=== PATIENT | female | born 1935 | race African-American/Black ===

== ENCOUNTER 2016-09-25 15:46 | Emergency (ER) | payer MEDICARE ==
[~2016-09-25] VITALS: Ht 154.9 cm; Wt 78.0 kg
[~2016-09-25 15:46] MED LIST: ACET1CAP18 PO; AMOX875T PO; CETI5CHW CHEW; CHLO25TA2 PO; FLUT50SP EACH NARE; LISI10TA3 PO
[2016-09-25 15:49] VITALS: BP 185/92; PULSE 72; RESP 20; TEMP 98.9; O2SAT 98
[2016-09-25] MEDS ORDERED: SODIUM CHLOR 0.9% 1000 ML INJ 1,000 ML IV SCH (16:24)
[2016-09-25] MEDS ORDERED: MORPHINE SULFATE 4 MG/ML INJ IV PUSH ONE (16:30)
[2016-09-25] MEDS ORDERED: ONDANSETRON HCL 4 MG/2 ML VIAL IVP ONE (16:30)
[2016-09-25] MEDS ORDERED: SODIUM CHLORIDE 0.9% FLUSH 10 ML FLUSH IV FLUSH PRN (16:30)
[2016-09-25 17:07] LABS: AUTOMATED NEUTROPHIL # 2.7 TH/MM3 (1.8-7.7); BASOPHIL % 0.9 % (0.0-2.0); EOSINOPHIL # 0.1 TH/MM3 (0-0.4); HEMATOCRIT 37.5 % (35.0-46.0); HEMO FLAGS DIFF FINAL; LYMPH % 38.7 % (9.0-44.0); LYMPHOCYTE # 2.2 TH/MM3 (1.0-4.8); MEAN CELL VOLUME 79.5 FL (80.0-100.0); MEAN CORPUSCULAR HEMOGLOBIN 27.9 PG (27.0-34.0); MEAN CORPUSCULAR HGB CONC 35.1 % (32.0-36.0); MONO % 11.8 % (0.0-8.0); NEUT % 47.6 % (16.0-70.0); PLATELET COUNT 291 TH/MM3 (150-450); RED BLOOD COUNT 4.71 MIL/MM3 (4.00-5.30); RED CELL DISTRIBUTION WIDTH 14.4 % (11.6-17.2); WHITE BLOOD COUNT 5.6 TH/MM3 (4.0-11.0)
[2016-09-25 17:08] LABS: BLOOD, URINE NEG (NEG); COMMENT (UR) CULT NOT INDICATED; CULTURE IF INDICATED CULT NOT INDICATED; GLUCOSE,URINE NEG (NEG); KETONE, URINE NEG (NEG); MUCUS URINE FEW /lpf (OCC); NITRITE,URINE NEG (NEG); PH, URINE 5.5 (5.0-8.5); SQUAMOUS EPITHELIAL CELL URINE 2 /hpf (0-5); URINE COLOR YELLOW (YELLW/STRAW)
--- NOTE | 2016-09-25 17:20 | PD ---
HPI Chief Complaint: Abdominal Pain Time Seen by Provider: 16:04 Travel History International Travel<30 days: No Contact w/Intl Traveler<30days: No Traveled to known affect area: No History of Present Illness HPI This is a 81-year-old female who presents to the emergency department with 1 week of intermittent abdominal pain, described as sharp, crampy, feeling like gas, worse in the upper abdomen associated with some dry heaving. She says this started after a two-week upper respiratory infection for which she completed a course of amoxicillin. She's been taking milk of magnesia and has had looser stools than normal. She denies any fevers or chills. She has had a hysterectomy and a cholecystectomy. PFSH Past Medical History Arthritis: Yes Autoimmune Disease: No Blood Disorders: No Anxiety: Yes (MILD) Cancer: No Cardiovascular Problems: Yes (HTN) High Cholesterol: Yes Congestive Heart Failure: No Diabetes: No Diminished Hearing: No Endocrine: No Gastrointestinal Disorders: Yes GERD: Yes Genitourinary: No Headaches: Yes (sinus headache) Hiatal Hernia: Yes Hypertension: Yes Immune Disorder: No Implanted Vascular Access Dvce: Yes Musculoskeletal: Yes (CHRONIC LOW BACK PAIN) Neurologic: Yes (feet numbness) Psychiatric: Yes Reproductive: No Respiratory: No ?: Not Past Surgical History Abdominal Surgery: Yes (DILCIA, ROSIO) Appendectomy: Yes Cardiac Surgery: No Cholecystectomy: Yes Ear Surgery: No Endocrine Surgery: No Eye Surgery: No Genitourinary Surgery: No Gynecologic Surgery: Yes ([id number] AND APPY) Hysterectomy: Yes Joint Replacement: Yes (BILATERAL KNEES) Oral Surgery: Yes (T&A) Pacemaker: No Thoracic Surgery: No Tonsillectomy: Yes Other Surgery: Yes (REDUCTION MAMOPLASTY) Social History Alcohol Use: No Tobacco Use: No Substance Use: No Allergies-Medications (Allergen,Severity, Reaction): Coded Allergies: No Known Allergies (Verified , 08/23/16) Reported Meds & Prescriptions Reported Meds & Active Scripts Active Lisinopril 10 Mg Tab 10 Mg PO DAILY Chlorthalidone 25 Mg Tab 25 Mg PO DAILY Reported Aspirin 81 (Aspirin) 81 Mg Tabdr 81 Mg PO DAILY Daiana Allergy (Fexofenadine HCl) 60 Mg Tab 60 Mg PO BID Omeprazole 20 Mg Tab 20 Mg PO DAILY Fluticasone Nasal [place] 50 Mcg/Act Naspr 50 Mcg EACH NARE BID 50 mcg/spray Cetirizine (Cetirizine HCl) 5 Mg Chew 5 Mg CHEW DAILY Tylenol (Acetaminophen) 325 Mg Cap 325 Mg PO Q6H PRN Review of Systems Except as stated in HPI: all other systems reviewed are Neg Physical Exam Narrative GENERAL:Well appearing, no acute distress SKIN: Focused skin assessment warm and dry. HEAD: Atraumatic. Normocephalic. EYES: Pupils equal and round. No injection or drainage. ENT: Moist mucous membranes NECK: Trachea midline. CARDIOVASCULAR: Regular rate and rhythm. No murmur appreciated. RESPIRATORY: Clear to auscultation. Breath sounds equal bilaterally. GASTROINTESTINAL: Abdomen soft, non-tender, nondistended. MUSCULOSKELETAL: No obvious deformities. NEUROLOGICAL: Awake and alert. No obvious cranial nerve deficits. Moving all extremities. PSYCHIATRIC: Appropriate mood and affect; insight and judgment normal. Data Data Last Documented VS Vital Signs Date Time Temp Pulse Resp B/P Pulse Ox O2 Delivery O2 Flow Rate FiO2 09/25/16 15:49 98.9 72 20 185/92 98 Room Air Orders Complete Blood Count With Diff (09/25/16 16:24) Comprehensive Metabolic Panel (09/25/16 16:24) Lipase (09/25/16 16:24) Urinalysis - C+S If Indicated (09/25/16 16:24) Ct Abd/Pel W Iv Contrast(Rout) (09/25/16 16:24) Iv Access Insert/Monitor (09/25/16 16:24) Ecg Monitoring (09/25/16 16:24) Oximetry (09/25/16 16:24) Morphine Inj (Morphine Inj) (09/25/16 16:30) Ondansetron Inj (Zofran Inj) (09/25/16 16:30) Sodium Chlor 0.9% 1000 Ml Inj (Ns 1000 M (09/25/16 16:24) Sodium Chloride 0.9% Flush (Ns Flush) (09/25/16 16:30) Lactic Acid (09/25/16 16:24) Troponin I (09/25/16 16:31) Electrocardiogram (09/25/16 ) Iohexol 350 Inj (Omnipaque 350 Inj) (09/25/16 17:59) Labs Laboratory Tests Test 09/25/16 16:45 White Blood Count 5.6 TH/MM3 Red Blood Count 4.71 MIL/MM3 Hemoglobin 13.1 GM/DL Hematocrit 37.5 % Mean Corpuscular Volume 79.5 FL Mean Corpuscular Hemoglobin 27.9 PG Mean Corpuscular Hemoglobin 35.1 % Concent Red Cell Distribution Width 14.4 % Platelet Count 291 TH/MM3 Mean Platelet Volume 9.0 FL Neutrophils (%) (Auto) 47.6 % Lymphocytes (%) (Auto) 38.7 % Monocytes (%) (Auto) 11.8 % Eosinophils (%) (Auto) 1.0 % Basophils (%) (Auto) 0.9 % Neutrophils # (Auto) 2.7 TH/MM3 Lymphocytes # (Auto) 2.2 TH/MM3 Monocytes # (Auto) 0.7 TH/MM3 Eosinophils # (Auto) 0.1 TH/MM3 Basophils # (Auto) 0.0 TH/MM3 CBC Comment DIFF FINAL Differential Comment Urine Color YELLOW Urine Turbidity CLEAR Urine pH 5.5 Urine Specific [place] 1.018 Urine Protein NEG mg/dL Urine Glucose (UA) NEG mg/dL Urine Ketones NEG mg/dL Urine Occult Blood NEG Urine Nitrite NEG Urine Bilirubin NEG Urine Urobilinogen LESS THAN 2.0 MG/DL Urine Leukocyte Esterase NEG Urine RBC LESS THAN 1 /hpf Urine WBC 1 /hpf Urine Squamous Epithelial 2 /hpf Cells Urine Mucus FEW /lpf Microscopic Urinalysis Comment CULT NOT INDICATED Sodium Level 139 MEQ/L Potassium Level 4.2 MEQ/L Chloride Level 104 MEQ/L Carbon Dioxide Level 28.6 MEQ/L Anion Gap 6 MEQ/L Blood Urea Nitrogen 16 MG/DL Creatinine 1.04 MG/DL Estimat Glomerular Filtration 62 ML/MIN Rate Random Glucose 99 MG/DL Lactic Acid Level 1.8 mmol/L Calcium Level 9.6 MG/DL Total Bilirubin 0.8 MG/DL Aspartate Amino Transf 51 U/L (AST/SGOT) Alanine Aminotransferase 27 U/L (ALT/SGPT) Alkaline Phosphatase 83 U/L Total Protein 8.4 GM/DL Albumin 4.0 GM/DL Lipase 280 U/L [facility] Medical Decision Making Medical Screen Exam Complete: Yes Emergency Medical Condition: Yes Interpretation(s) Afebrile, no tachycardia, hypertensive EKG: Normal sinus rhythm with no ST changes No leukocytosis Electrolytes are reassuring Lactic acid is 1.8 Lipase is normal Urinalysis: No infection Last 24 hours Impressions Abdomen/Pelvis CT 09/25/16 1624 Signed Impressions: Service Date/Time: Sunday, September 25, 2016 17:44 - CONCLUSION: 1. No evidence of acute abdominal or pelvic process. No masses are identified. 2. Diverticulosis without evidence of diverticulitis. Bobby Garcia MD Differential Diagnosis Gastritis, peptic ulcer disease, pancreatitis, cholelithiasis, cholecystitis, acute coronary syndrome Narrative Course This is a 81-year-old female who presents to the emergency department with abdominal discomfort and some nausea that going on for 1 week. She has benign abdominal exam. She is very well-appearing. Labs are all reassuring. CT scan was ordered which was unremarkable. EKG is nonischemic. I think patient likely has GERD or some gastritis. Patient will be discharged home with an antacid to follow-up with her primary care physician and possibly a principal cloud architect. Diagnosis Primary Impression: GERD (gastroesophageal reflux disease) Qualified Code: K21.9 - Gastroesophageal reflux disease, esophagitis presence not specified Patient Instructions: General Instructions Additional Instructions: If you develop severe or worsening abdominal pain, fever>100.4, persistent vomiting or inability to eat or drink return to the emergency department immediately. Follow up with your primary care physician in 1-2 days for a check-up. Med/Other Pt SpecificInfo: Prescription(s) given Scripts Sucralfate (Carafate)1 Gm Tab1 Gm PO TID #90 TAB Ref 0 On empty stomach Prov:Bernice Glynn MD 09/25/16 Ranitidine (Zantac)150 Mg Xnr620 Mg PO BID #60 TAB Ref 0 Prov:Bernice Glynn MD 09/25/16 Disposition: 01 DISCHARGE HOME Condition: Stable Bernice Glynn MD September 25, 2016 17:20
[2016-09-25 17:22] LABS: ALT (GPT) 27 U/L (10-53); ANION GAP 6 MEQ/L (5-15); AST (GOT) 51 U/L (15-37); BICARBONATE 28.6 MEQ/L (21.0-32.0); BLOOD UREA NITROGEN 16 MG/DL (7-18); CHLORIDE 104 MEQ/L (98-107); GLOMERULAR FILTRATION RATE 62 ML/MIN (>89); SODIUM (NA) 139 MEQ/L (136-145)
[2016-09-25 17:23] LABS: ALKALINE PHOSPHATASE 83 U/L (45-117); POTASSIUM 4.2 MEQ/L (3.5-5.1); TOTAL BILIRUBIN ADULT 0.8 MG/DL (0.2-1.0)
[2016-09-25] MEDS ORDERED: ASPI-110 PO (17:25)
[2016-09-25] MEDS ORDERED: OMEP20TA PO (17:25)
[2016-09-25] MEDS ORDERED: ALLE60TA PO (17:25)
[2016-09-25] MEDS ORDERED: IOHEXOL 350 MG/ML 10 ML VIAL (for RAD DIAG) IV ONE (17:59)
--- NOTE | 2016-09-25 18:12 | RADRPT ---
EXAM DATE/TIME: 09/25/2016 17:44 [facility] COMPARISON: No previous studies available for comparison. INDICATIONS : Abdomen pain and nausea for one week IV CONTRAST: 85 cc Omnipaque 350 (iohexol) IV ORAL CONTRAST: No oral contrast ingested. RADIATION DOSE: 9.96 CTDIvol (mGy) MEDICAL HISTORY : Cardiovascular disease. Hypertension. SURGICAL HISTORY : Appendectomy. Cholecystectomy.Hysterectomy. ENCOUNTER: Initial ACUITY: 1 week PAIN SCALE: 6/10 LOCATION: Diffuse abdomen TECHNIQUE: Volumetric scanning of the abdomen and pelvis was performed. Using automated exposure control and ad justment of the mA and/or kV according to patient size, radiation dose was kept as low as reasonably achievable to obtain optimal diagnostic quality images. FINDINGS: Examination of the lung bases demonstrates no abnormality. No pleural fluid is identified. No pulmona ry nodules are present. The liver and spleen are free of focal defects. The gallbladder is absent and the pancreas demonstrate no abnormality. The adrenal glands are normal. The kidneys demonstrate no e vidence of solid renal mass or hydronephrosis. No free fluid or abdominal masses are identified. No p donny-aortic adenopathy is seen. Examination of the pelvis demonstrates no evidence of free fluid or pelvic mass. No abnormally enlarg ed inguinal or retroperitoneal lymph nodes are present. The bladder is unremarkable. There is diverti culosis without evidence of diverticulitis. CONCLUSION: 1. No evidence of acute abdominal or pelvic process. No masses are identified. 2. Diverticulosis without evidence of diverticulitis. Bobby Garcia MD on September 25, 2016 at 18:07 Board Certified Radiologist. This report was verified electronically.
[2016-09-25] MEDS ORDERED: CARA1TAB6 PO (18:25)
[2016-09-25] MEDS ORDERED: ZANT150T2 PO (18:25)
--- NOTE | 2016-09-26 13:40 | EKG ---
Date Performed: 09/25/2016 Time Performed: 17:02:20 PTAGE: 81 years EKG: Sinus rhythm VOLTAGE CRITERIA FOR LVH NONSPECIFIC T-WAVE ABNORMALITY ABNORMAL ECG Compared to prior tracing no si gnificant change PREVIOUS TRACING : 12/26/2015 00.02 DOCTOR: Talha Cormier Interpretating Date/Time 09/26/2016 13:38:16
[2016-10-09] MEDS ORDERED: ZANT150T2 PO (09:31)
== END 2016-09-25 19:10 | disposition home or self-care (01) ==
LOC: NEPE 15:46
DX: K21.9 Gastro-esophageal reflux disease without esophagitis (principal); I10 Essential (primary) hypertension; R94.31 Abnormal electrocardiogram [ECG] [EKG]; Z79.899 Other long term (current) drug therapy
CPT/HCPCS: 74177; 80053; 81001; 83605; 83690; 84484; 85025; 93005; 96361; 96374; 96375; 99284; J2270; J2405; J7030; Q9967

== ENCOUNTER → 2017-02-11 | Outpatient (CLI) | payer MEDICARE, OTHER ==
[~2017-02-11] MED LIST changes: -ACET1CAP18 PO; +ALLE60TA PO; -AMOX875T PO; +ASPI-110 PO; +CARA1TAB6 PO; +INFL1INJ56 IM; +LACT10SO PO; +MULT-65 PO; +PERI8.6T PO; +SIME40DR3 PO; +TYLE325T PO; +VITA10004 PO; +ZANT150T2 PO
[2017-02-11 10:56] LABS: AUTOMATED NEUTROPHIL # 2.4 TH/MM3 (1.8-7.7); BASOPHIL % 0.8 % (0.0-2.0); EOSINOPHIL # 0.2 TH/MM3 (0-0.4); EOSINOPHIL % 3.1 % (0.0-4.0); HEMATOCRIT 36.3 % (35.0-46.0); HEMO FLAGS DIFF FINAL; LYMPH % 40.8 % (9.0-44.0); LYMPHOCYTE # 2.2 TH/MM3 (1.0-4.8); MEAN CELL VOLUME 80.8 FL (80.0-100.0); MEAN CORPUSCULAR HEMOGLOBIN 28.6 PG (27.0-34.0); MEAN CORPUSCULAR HGB CONC 35.4 % (32.0-36.0); MONO % 10.3 % (0.0-8.0); PLATELET COUNT 280 TH/MM3 (150-450); RED BLOOD COUNT 4.49 MIL/MM3 (4.00-5.30); WHITE BLOOD COUNT 5.3 TH/MM3 (4.0-11.0)
[2017-02-11 11:12] LABS: BLOOD, URINE NEG (NEG); COMMENT (UR) CULT NOT INDICATED; CULTURE IF INDICATED CULT NOT INDICATED; GLUCOSE,URINE NEG (NEG); KETONE, URINE NEG (NEG); NITRITE,URINE NEG (NEG); SQUAMOUS EPITHELIAL CELL URINE 2 /hpf (0-5); URINE COLOR YELLOW (YELLW/STRAW)
[2017-02-11 11:17] LABS: ALT (GPT) 26 U/L (10-53); ANION GAP 10 MEQ/L (5-15); AST (GOT) 18 U/L (15-37); BLOOD UREA NITROGEN 13 MG/DL (7-18); CHLORIDE 103 MEQ/L (98-107); GLOMERULAR FILTRATION RATE 78 ML/MIN (>89); GLUCOSE,FASTING 80 MG/DL (74-99); POTASSIUM 3.8 MEQ/L (3.5-5.1); SODIUM (NA) 140 MEQ/L (136-145)
[2017-02-11 11:20] LABS: ALKALINE PHOSPHATASE 96 U/L (45-117); TOTAL BILIRUBIN ADULT 0.7 MG/DL (0.2-1.0)
== END ==
LOC: CPRE 09:52
PROVIDERS: ATTEND Obstetrics & Gynecology Gynecology
DX: Z01.810 Encounter for preprocedural cardiovascular examination (principal); Z01.812 Encounter for preprocedural laboratory examination; N99.3 Prolapse of vaginal vault after hysterectomy
CPT/HCPCS: 36415; 80053; 81001; 85025

== ENCOUNTER → 2017-02-19 | Day surgery (SDC) | payer MEDICARE, OTHER ==
--- NOTE | 2017-02-12 10:08 | MH ---
cc: MIKI CUEVA MD DATE OF ADMISSION: 02/19/2017 REASON FOR ADMISSION Pelvic repair anterior and posterior compartments with apical repair. HISTORY OF PRESENT ILLNESS The patient is a 81-year-old -[place] female, 4, para 4, status post total abdominal hysterectomy and BSO in 1968 for an ectopic . 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 She has declined pessary use and wants to proceed with surgical correction. PAST MEDICAL HISTORY 1. Hypertension. 2. Hypercholesterolemia. 3. GERD. 4. Chronic constipation. MEDICATIONS 1. Zantac 150 mg p.o. q. day. 2. Aspirin 81 mg q. day. 3. Lisinopril 10 mg q. day. 4. Chlorthalidone 25 mg q. day. ALLERGIES None. PAST SURGICAL HISTORY 1. As above DILCIA-BSO. 2. Cholecystectomy. 3. Bilateral knee replacement. 4. Breast reduction. 5. Tonsillectomy. SOCIAL HISTORY No tobacco or drugs. Retired, lives alone, but has good social support. SLURRY MAN HISTORY No STDs or abnormal Pap smears. Not presently sexually active. OB HISTORY Four vaginal deliveries. FAMILY HISTORY Noncontributory. ALLERGIES None. REVIEW OF SYSTEMS As above. No chest pain, orthopnea, PND. No nausea, vomiting, fever, chills. No vaginal bleeding or discharge. Remainder of 14-point review is negative. PHYSICAL EXAMINATION VITAL SIGNS: She is afebrile. Vital signs stable. Blood pressure 120/70. Height 5 feet, weight 156, BMI 35. GENERAL: Patient is alert and oriented, in no acute distress. No sign of cognitive dysfunction or depression. HEENT: Within normal limits. NECK: Supple. No JVD. CHEST: Clear. HEART: Regular rate and rhythm. ABDOMEN: Soft, nontender. No hepatosplenomegaly. No CVA tenderness. PELVIC: Exam in the office shows POP-Q score: Aa is +3; Ap is +3; point C is +5; genital hiatus is 6; perineal body is 2; total vaginal length is 10. Levator strength is 4/5. Sacral nerve reflexes are decreased. Postvoid residual is 30 cc. Further exam under anesthesia. EXTREMITIES: Normal. SKIN: Without rashes. NEUROLOGIC: Nonfocal. No DVT signs. ASSESSMENT AND PLAN Patient with stage IV pelvic organ prolapse. We discussed options for management and treatment. She has opted for surgical correction. She is aware of the risks, benefits and alternatives of planned procedure including damage to surrounding organs, bleeding, infection, failure of repair, de maximino stress incontinence. The patient has made an informed choice to proceed. Anticipate outpatient procedure. We will use DVT prophylaxis with sequential compression device and antibiotic prophylaxis with Ancef 2 grams. Miki Cueva MD CS/BT /9:40 AM /9:49 AM
[~2017-02-19] VITALS: Ht 154.9 cm; Wt 74.8 kg
[~2017-02-19] MED LIST changes: +BUPIVACAINE/EPINEPHRINE 0.5% 50 ML VIAL ONE; -CARA1TAB6 PO; +CHLORHEXIDINE GLUCONATE 2 % 1 PACK (2 CLOTHS) TOPICAL PRN; +DEXAMETHASONE SOD PHOS 4 MG/ML VIAL IV ONE; +DO NOT ADM ANY ANTICOAGULANT DRUGS PRN; +ESTROGENS CONJUGATED VAG CREA 15 APPL/30 GM TUBE ONE; +FLUORESCEIN SOD 10% SOLN 500 MG/5 ML AMP ONE; +GLYCOPYRROLATE 1 MG/5 ML SYRINGE IV PUSH ONE; +INSULIN HUMAN REGULAR 1,000 UNITS/10 ML VIAL SQ PRN; +KETOROLAC TROMETHAMINE 30 MG/ML (IVP) VIAL IV PUSH ONE; +KETOROLAC TROMETHAMINE 30 MG/ML (IVP) VIAL IV PUSH PRN; +LACTATED RINGER'S 1000 ML IV PRN; +LIDOCAINE 1%/EPINEPHrine 1:100,000 SOLN 30 ML VIAL INFIL ONE; +LIDOCAINE 2%/EPINEPHrine PF 1:200,000 20ML SDV ONE; +LIDOCAINE HCL 1% PF 5 ML AMPULE OTHER ONE; +METHYLENE BLUE 10 MG/ML VIAL IV ONE; +METOPROLOL TARTRATE 25 MG TAB PO PRN; +NEOSTIGMINE 3 MG/3 ML SYR IV ONE; +ONDANSETRON HCL 4 MG/2 ML VIAL IV PUSH ONE; +ONDANSETRON HCL 4 MG/2 ML VIAL IV PUSH PRN; +POVIDONE IODINE 5% (ANTISEPSIS KIT) 4 APPLICATIONS EACH NARE PRN; +PROPOFOL 200 MG/20 ML AMP IV ONE; +ROCURONIUM INJ 50 MG/5 ML SYRINGE IV PUSH ONE; +SODIUM CHLORID 0.9% 500 ML IV PRN; +ceFAZolin 2 GM PREMIX 50 ML ONE; +ePHEDrine/NS 25 MG/5 ML SYR IV ONE; +traMADol HCL 50 MG TAB ONE; +traMADol HCL 50 MG TAB PO PRN
--- NOTE | 2017-02-19 10:31 | MP ---
cc: MIKI CUEVA MD DATE OF SURGERY 02/19/2017 PREOPERATIVE DIAGNOSIS Stage IV vaginal vault prolapse following prior hysterectomy. POSTOPERATIVE DIAGNOSIS Stage IV vaginal vault prolapse following prior hysterectomy with loss of perineal body. PROCEDURE 1. Sacrospinous ligament fixation Prolene suture right side. 2. Anterior and posterior repair with enterocele. 3. External sphincter repair. 4. Diagnostic cystoscopy. 5. 22 modifier secondary to significant disruption of the support structures and degree of pelvic organ prolapse necessitating complicated dissection and repair. SURGEON MD Hayder ANESTHESIA Endotracheal. BLOOD LOSS 25 cc. URINE OUTPUT 200 cc. BUSINESS ANALYST PROJECT MANAGER [place] staff x2. FLUID 1000 cc. FINDINGS External genitalia poorly estrogenized. POP-Q score: Aa is +3, Ap is +3. Point C is +6. Total vaginal length is 10. Genital hiatus is 8. Perineal body is 2. Following repair, Aa is -3, Ap is -3. Point C is -8. Total vaginal length is 8. Genital hiatus is 4. Perineal body is 5 Cystoscopy following repair shows normal trigone, good coaptation of urethra. Ureteral orifices patent x2. Dome and base of bladder normal. Rectal exam following repair shows no compromise of the rectal lumen. SPECIMENS None. COMPLICATIONS None. DISPOSITION To the recovery room stable. COUNTS Needle and sponge counts correct. DRAINS Dennis catheter. ANTIBIOTIC PROPHYLAXIS Ancef 2 grams. DVT PROPHYLAXIS Sequential compression device. TIME-OUT PROCEDURE Per protocol. SUMMARY OF INDICATIONS FOR PROCEDURE Patient with complete vaginal vault prolapse, symptomatic, wanted to maintain possibility of sexual function. PROCEDURE PERFORMED The patient was taken to the operating room theater, identified and prepped and draped in fashion appropriate for the planned procedure. She was in dorsal lithotomy position with careful attention paid to placement of legs in the stirrups to avoid undue stress to sensitive neurovascular structures. The above findings were noted, neurovascular integrity documented. Dennis catheter was placed. Methylene blue was instilled into the bladder. The vaginal vault had significant prolapse. Point C was +6. The apex of the vagina was marked stay sutures. The perineal body was remarkably diminished. We made an incision in the posterior compartment and reflected the vaginal mucosa from the rectum and enterocele was noted. We used epinephrine and lidocaine for dissection assistance and anesthesia. We identified the sacrospinous ligament on the right visually and then placed a Prolene suture through the ligament and probably also part of the coccygeus muscle as the ligament was somewhat attenuated. We were at least two fingerbreadths from the ischial spine medial. Rectal exam confirmed there was no compromise of the lumen. We then affixed the Prolene suture to the apex of the vagina on the right and affixed this with a mena type stitch with good result. The remainder of the rectocele repair and enterocele repair were performed in standard fashion with delayed absorbable suture. The vaginal mucosa was trimmed and then we closed the vaginal mucosa approximately three-quarters of the way with a running Vicryl suture. We then cinched down the sacrospinous ligament with a suspension suture with excellent support and elevation. The remainder of the posterior repair was performed without complication. External sphincter muscle was quite diminished. This area was rebuilt with end-to-end technique with delayed absorbable suture. This also gave us the advantage of bolstering the perineal body and decreasing the genital hiatus. The anterior compartment still had significant defect. We made a midline incision after infiltration with epinephrine/lidocaine solution, reflected the bladder. There was no spill of methylene blue with dissection. We performed anterior repair without complication. The vaginal mucosa was trimmed and the mucosa was closed with a running Vicryl suture. It should also be noted that we used hemostatic matrix anterior and posterior to obviate the need for packing. Cystoscopy was performed using a 17-Greek bridge and a 70-degree scope. The patient received IV fluorescein 1 cc. We were able to clearly see ureteral patency documented by green urine from each UO. No issues with the dome or base of bladder. There was good coaptation of the urethra. At this point our procedure was concluded. Rectal exam confirmed no damage to the rectum, had good support of the perineal body and the external sphincter complex. The suture line was intact with no bleeding or gaps. The patient had the catheter replaced and will have voiding trial postop. If she meets criteria, she will be discharged from Same-Day Surgery. MD CHUY Ruffin/KAMILA /9:45 AM /10:05 AM
[2017-02-19 10:50] VITALS: BP 135/63; PULSE 70; RESP 20; TEMP 97.6; O2SAT 97
== END | disposition home or self-care (01) ==
LOC: HSDC 05:43
PROVIDERS: ATTEND Obstetrics & Gynecology Gynecology
DX: N99.3 Prolapse of vaginal vault after hysterectomy (principal); I10 Essential (primary) hypertension; E78.00 Pure hypercholesterolemia, unspecified; K21.9 Gastro-esophageal reflux disease without esophagitis; K59.09 Other constipation
CPT/HCPCS: J0690; J1100; J1885; J2405; J2710; J3010; J7120